=== PATIENT | female | born 1975 | race Caucasian/White ===

== ENCOUNTER 2016-12-04 21:56 | Emergency (ER) | payer BC ==
[~2016-12-04] VITALS: Ht 172.7 cm; Wt 78.0 kg
[~2016-12-04 21:56] MED LIST: IBUP600 PO; METO25CR OR; OXYC1SOL5 PO; PREN0.01 PO; SYNT75TA PO
[2016-12-04 22:00] VITALS: BP 155/95; PULSE 80; RESP 16; TEMP 98; O2SAT 98
[2016-12-04 22:38] VITALS: BP 155/92; PULSE 68; RESP 18; O2SAT 95
[2016-12-04] MEDS ORDERED: LORazepam 2 MG/ML VIAL IV PUSH ONE (22:45)
[2016-12-04] MEDS ORDERED: SODIUM CHLORIDE 0.9% FLUSH 10 ML FLUSH IVF PRN (22:45)
--- NOTE | 2016-12-04 22:55 | RADRPT ---
EXAM DATE/TIME: 12/04/2016 22:46 [place] COMPARISON: No previous studies available for comparison. INDICATIONS : Chest pain MEDICAL HISTORY : Hypertension. Hypothyroidism. SURGICAL HISTORY : ENCOUNTER: Initial ACUITY: 1 day PAIN SCORE: 5/10 LOCATION: Bilateral chest FINDINGS: The heart is mildly prominent. Minimal pulmonary vascular congestion is noted. Mild bibasilar atele ctasis and/or infiltrates are noted. CONCLUSION: 1. Mild bibasilar atelectasis and/or infiltrates. 2. Minimal pulmonary vascular congestion. 3. Mild cardiomegaly. Kishan Mejia MD on December 04, 2016 at 22:48 Board Certified Radiologist. This report was verified electronically.
--- NOTE | 2016-12-04 22:57 | PD ---
HPI Chief Complaint: Chest Pain Time Seen by Provider: 22:21 Travel History International Travel<30 days: No Contact w/Intl Traveler<30days: No Traveled to known affect area: No History of Present Illness HPI Patient is a 41-year-old female presents emergency department with complaint of chest pain, anxiety. Patient states that she's been under significant amounts of psychosocial stress recently between duties at work having been increased and issues at home with her significant other. She has 2 young boys ages 2 and 4. This certainly contributes. Patient states that she's been feeling increasingly depressed and anxious. She gets some chest pain associated with this. She describes this as a substernal ache with associated nausea, occasional she'll have some fluttering feeling but no significant palpitations. Patient states that she tried a Xanax which typically helps but did not respond to this today prompting ER visit. She denies any known history of cardiac disease. Nonsmoker. Family history of hypertension, patient took her blood pressure at home and was elevated in the 150 systolic which she is quite worried about. PFSH Past Medical History Cardiovascular Problems: Yes (PALPITATIONS) Diminished Hearing: No Hypertension: Yes Thyroid Disease: Yes (hypo) Tetanus Vaccination: < 5 Years Influenza Vaccination: Yes ?: Not LMP: 12/04/2016 : 6 Para: 2 Miscarriage: 4 Ectopic : Yes Past Surgical History Section: Yes Cholecystectomy: Yes Gynecologic Surgery: Yes (D&C @17 WITH 1ST MISCARRIAGE, eptopic preg 09/29 with left tune removed) Social History Alcohol Use: Yes (occasionally) Tobacco Use: No Substance Use: No Allergies-Medications (Allergen,Severity, Reaction): Coded Allergies: No Known Allergies (Verified , 03/02/16) Reported Meds & Prescriptions Reported Meds & Active Scripts Active Oxycodone/Acetaminophen 5 mg/325 mg 5 mg/325 mg Tab 1-2 Tab PO Q4H PRN Oxycodone/Acetaminophen 5 mg/325 mg 1 Tab Tab 2 Tab PO Q4H Motrin 600 Mg Tab (Ibuprofen) 600 Mg Tab 600 Mg PO Q6H Reported Synthroid 75 mcg (Levothyroxine Sodium) 75 Mcg Tab 75 Mcg PO DAILY Metoprolol Succinate ER (Metoprolol Succinate) 25 Mg Tab 25 Mg OR Vit ( Plus) (Prenat Multivit/[place]/Iron/Folic Ac) Tab 1 Tab PO DAILY Review of Systems Except as stated in HPI: all other systems reviewed are Neg Physical Exam Narrative GENERAL: Anxious, tearful middle-aged female in no acute distress SKIN: Focused skin assessment warm/dry. HEAD: Normocephalic. EYES: No scleral icterus. No injection or drainage. ENT: Mucous membranes pink and moist. NECK: Supple CARDIOVASCULAR: Regular rate and rhythm. No murmur appreciated. No reproducible tenderness to palpation of the chest wall RESPIRATORY: No accessory muscle use. Clear to auscultation. Breath sounds equal bilaterally. GASTROINTESTINAL: Abdomen soft, non-tender, nondistended. Obese MUSCULOSKELETAL: No obvious deformities. No edema. NEUROLOGICAL: Awake and alert. Normal speech. PSYCHIATRIC: Anxious, tearful Data Data Last Documented VS Vital Signs Date Time Temp Pulse Resp B/P Pulse Ox O2 Delivery O2 Flow Rate FiO2 12/04/16 22:38 68 18 155/92 95 Room Air 12/04/16 22:00 98.0 Orders Electrocardiogram (12/04/16 ) Electrocardiogram (12/04/16 22:33) Basic Metabolic Panel (Bmp) (12/04/16 22:33) Complete Blood Count With Diff (12/04/16 22:33) Troponin I (12/04/16 22:33) Chest, Single Ap (12/04/16 22:33) Ecg Monitoring (12/04/16 22:33) Iv Access Insert/Monitor (12/04/16 22:33) Oximetry (12/04/16 22:33) Sodium Chloride 0.9% Flush (Ns Flush) (12/04/16 22:45) Lorazepam Inj (Ativan Inj) (12/04/16 22:45) Labs Laboratory Tests Test 12/04/16 22:40 White Blood Count 7.8 TH/MM3 Red Blood Count 4.96 MIL/MM3 Hemoglobin 14.2 GM/DL Hematocrit 42.4 % Mean Corpuscular Volume 85.5 FL Mean Corpuscular Hemoglobin 28.7 PG Mean Corpuscular Hemoglobin 33.6 % Concent Red Cell Distribution Width 12.8 % Platelet Count 219 TH/MM3 Mean Platelet Volume 9.0 FL Neutrophils (%) (Auto) 64.5 % Lymphocytes (%) (Auto) 27.0 % Monocytes (%) (Auto) 6.5 % Eosinophils (%) (Auto) 1.7 % Basophils (%) (Auto) 0.3 % Neutrophils # (Auto) 5.0 TH/MM3 Lymphocytes # (Auto) 2.1 TH/MM3 Monocytes # (Auto) 0.5 TH/MM3 Eosinophils # (Auto) 0.1 TH/MM3 Basophils # (Auto) 0.0 TH/MM3 CBC Comment DIFF FINAL Differential Comment Sodium Level 143 MEQ/L Potassium Level 3.6 MEQ/L Chloride Level 105 MEQ/L Carbon Dioxide Level 32.1 MEQ/L Anion Gap 6 MEQ/L Blood Urea Nitrogen 13 MG/DL Creatinine 0.68 MG/DL Estimat Glomerular Filtration 96 ML/MIN Rate Random Glucose 108 MG/DL Calcium Level 10.0 MG/DL Troponin I LESS THAN 0.02 NG/ML MDM Medical Decision Making Medical Screen Exam Complete: Yes Emergency Medical Condition: Yes Medical Record Reviewed: Yes Differential Diagnosis 41-year-old female with history of anxiety here with complaint of chest pain, anxiety. Try suspicion is that her symptoms are due to underlying psychosocial stressors, anxiety. Less likely ACS, pneumonia, atypical chest pain, PE or dissection. Narrative Course Patient placed on monitor, IV established and blood obtained. Twelve-lead EKG shows sinus rhythm without notable ST or T-wave abnormalities and normal intervals. Patient given 1 mg Ativan IV. Portable chest x-ray obtained that by my read shows no acute abnormalities. CBC, BMP, troponin were obtained and unremarkable. Patient felt reassured, discharged home Diagnosis Primary Impression: Non-cardiac chest pain Additional Impression: Anxiety Referrals: Primary Care Physician as needed Med/Other Pt SpecificInfo: No Change to Meds Disposition: 01 DISCHARGE HOME Condition: Stable Anh Gamez MD December 04, 2016 22:57
[2016-12-04 23:09] LABS: ANION GAP 6 MEQ/L (5-15); BICARBONATE 32.1 MEQ/L (21.0-32.0); BLOOD UREA NITROGEN 13 MG/DL (7-18); CHLORIDE 105 MEQ/L (98-107); GLOMERULAR FILTRATION RATE 96 ML/MIN (>89); POTASSIUM 3.6 MEQ/L (3.5-5.1); SODIUM (NA) 143 MEQ/L (136-145)
[2016-12-04 23:14] LABS: BASOPHIL % 0.3 % (0.0-2.0); EOSINOPHIL # 0.1 TH/MM3 (0-0.4); EOSINOPHIL % 1.7 % (0.0-4.0); HEMATOCRIT 42.4 % (35.0-46.0); HEMO FLAGS DIFF FINAL; LYMPHOCYTE # 2.1 TH/MM3 (1.0-4.8); MEAN CELL VOLUME 85.5 FL (80.0-100.0); MEAN CORPUSCULAR HEMOGLOBIN 28.7 PG (27.0-34.0); MEAN CORPUSCULAR HGB CONC 33.6 % (32.0-36.0); MONO % 6.5 % (0.0-8.0); NEUT % 64.5 % (16.0-70.0); PLATELET COUNT 219 TH/MM3 (150-450); RED BLOOD COUNT 4.96 MIL/MM3 (4.00-5.30); RED CELL DISTRIBUTION WIDTH 12.8 % (11.6-17.2); WHITE BLOOD COUNT 7.8 TH/MM3 (4.0-11.0)
[2016-12-04 23:32] VITALS: BP 130/83
--- NOTE | 2016-12-05 14:59 | EKG ---
Date Performed: 12/04/2016 Time Performed: 22:25:01 PTAGE: 41 years EKG: Sinus rhythm NORMAL ECG NO PREVIOUS TRACING DOCTOR: Nancy Jarquin Interpretating Date/Time 12/05/2016 14:57:57
== END 2016-12-04 23:48 | disposition home or self-care (01) ==
LOC: NEPE 21:56
DX: R07.89 Other chest pain (principal); F41.9 Anxiety disorder, unspecified; I10 Essential (primary) hypertension; E03.9 Hypothyroidism, unspecified
CPT/HCPCS: 71010; 80048; 84484; 85025; 93005; 96374; 99284; J2060